=== PATIENT | male | born 1960 | race Caucasian/White ===

== ENCOUNTER → 2019-11-28 | Outpatient (CLI) | payer BC ==
--- NOTE | 2019-11-28 11:46 | MRI ---
Study: MRI of the Right Shoulder. Indication: SHOULDER PAIN Technique: Multiplanar, multi sequence MRI of the right shoulder was obtained without intravenous contrast. Comparison: None. Findings: Severe AC joint osteoarthritis. Type I acromion. Supraspinatus and infraspinatus tendinosis and attenuation with scattered interstitial fissuring and bursal surface fraying throughout both tendons. In addition, at the conjoined tendon insertion is more pronounced focal intermediate grade interstitial tearing. No full-thickness tear or tendon retraction. Subscapularis tendinosis. Teres minor tendon intact. Intracapsular long head biceps tendinosis. Grade 1 fatty infiltration rotator cuff musculature and most pronounced at the subscapularis muscle belly. Circumferential labral tearing and truncation. Mild to moderate glenohumeral joint osteoarthritis. No acute fracture. Thickening and edema inferior glenohumeral ligament which can be seen with adhesive capsulitis. Impression: Supraspinatus and infraspinatus tendinosis and attenuation with scattered interstitial fissuring and bursal surface fraying of both tendons. More pronounced focal intermediate grade interstitial tearing noted at the conjoined tendon insertion. Subscapularis tendinosis. Intracapsular long head biceps tendinosis. Grade 1 fatty infiltration rotator cuff musculature. Circumferential labral tearing and truncation. Mild to moderate glenohumeral joint osteoarthritis. Adhesive capsulitis. Severe AC joint osteoarthritis. Electronically signed by: Andrea Bridges MD 11/28/2019 11:44 AM CDT
== END ==
LOC: MRI 07:57
PROVIDERS: ATTEND Chiropractor
DX: S43.431A Superior glenoid labrum lesion of right shoulder, initial encounter (principal); M75.91 Shoulder lesion, unspecified, right shoulder; M75.01 Adhesive capsulitis of right shoulder; M19.011 Primary osteoarthritis, right shoulder